=== PATIENT | male | born 1960 | race Caucasian/White ===

== ENCOUNTER 2016-11-27 06:37 | Emergency (ER) | payer OTHER ==
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
== END 2016-11-27 09:30 ==
LOC: CED 06:37
DX: S68.123A Partial traumatic metacarpophalangeal amputation of left middle finger, initial encounter (principal); Z87.891 Personal history of nicotine dependence; W23.0XXA Caught, crushed, jammed, or pinched between moving objects, initial encounter
CPT/HCPCS: 73140; 90471; 90715; 96372; 99283; J0690